=== PATIENT | male | born 1935 | race Asian ===

== ENCOUNTER 2017-06-11 19:55 | Emergency (ER) | payer MEDICARE, OTHER ==
[~2017-06-11] VITALS: Ht 157.5 cm; Wt 55.4 kg
[2017-06-11] MEDS ORDERED: SODIUM CHLORIDE FLUSH 10ML SYR IVF ONE (20:30)
[2017-06-11 20:37] LABS: BASOPHILS # (AUTO) 0.07 x10^3/uL (0-0.1); BASOPHILS % (AUTO) 1 % (0-1); EOSINOPHILS # (AUTO) 0.74 x10^3/uL (0-0.4); EOSINOPHILS % (AUTO) 11 % (1-7); LYMPHOCYTES # (AUTO) 0.88 x10^3/uL (1-3.4); LYMPHOCYTES % (AUTO) 13 % (22-44); MD NO; MEAN PLATELET VOLUME 8.7 fL (7.4-10.4); MONOCYTES # (AUTO) 0.47 x10^3/uL (0.2-0.8); MONOCYTES % (AUTO) 7 % (2-9); NEUTROPHILS # (AUTO) 4.55 x10^3/uL (1.8-6.8); NEUTROPHILS % (AUTO) 68 % (42-75); PLATELET COUNT 260 x10^3/uL (130-400)
[2017-06-11 20:48] LABS: ANION GAP 8 mmol/L (5-15); CALCIUM 9.5 mg/dL (8.5-10.1); CHLORIDE 107 mmol/L (98-107)
[2017-06-11 20:49] LABS: ALANINE AMINOTRANSFERASE 24 U/L (12-78); ALBUMIN 3.7 g/dL (3.4-5.0)
[2017-06-11 20:53] LABS: ALKALINE PHOSPHATASE 47 U/L (45-117); BILIRUBIN,TOTAL 0.5 mg/dL (0.2-1.0); TOTAL PROTEIN 7.2 g/dL (6.4-8.2); TROPONIN I < 0.015 ng/mL (0.000-0.045)
[2017-06-11] MEDS ORDERED: METF500T4 PO (21:09)
[2017-06-11] MEDS ORDERED: SIMV80TA3 PO (21:09)
[2017-06-11] MEDS ORDERED: ASPI-496 PO (21:09)
[2017-06-11] MEDS ORDERED: LISI5TAB7 PO (21:09)
[2017-06-11] MEDS ORDERED: CLOP75TA PO (21:09)
[2017-06-12] MEDS ORDERED: METOPROLOL TARTRATE 25 MG TABLET PO SCH (11:30)
[2017-06-12] MEDS ORDERED: METOPROLOL TARTRATE 50 MG TABLET ONE (11:41)
[2017-06-12] MEDS ORDERED: METO25TA35 PO (11:44)
[2017-06-12 13:50] VITALS: BP 158/47
[2017-06-19 10:22] LABS: MEAN CORPUSCULAR HEMOGLOBIN 29.2 pg (27.5-34.5); MEAN CORPUSCULAR HGB CONC 32.7 g/dL (33.2-36.2); MEAN CORPUSCULAR VOLUME 89.4 fL (81-97); RED BLOOD COUNT 4.52 x10^6/uL (4.38-5.82); RED CELL DISTRIBUTION WIDTH 13.1 % (9.4-14.8)
[2017-06-19 10:23] LABS: CREATININE 1.47 mg/dL (0.7-1.3)
== END 2017-06-12 13:52 | disposition home or self-care (01) ==
LOC: EDSEX 19:55 → ED 21:53 → EDIP 22:00 → UNDOADMIN 22:00 → UNDODISIN 06-12 13:52
DX: R00.2 Palpitations (principal); R55 Syncope and collapse
CPT/HCPCS: 36415; 71045; 80053; 84484; 85025; 93005; 99285